=== PATIENT | female | born 1955 | race Caucasian/White ===

== ENCOUNTER 2017-07-23 11:15 | Emergency (ER) | payer OTHER ==
[~2017-07-23] VITALS: Ht 162.6 cm; Wt 95.3 kg
--- NOTE | 2017-07-23 12:12 | ED SKIN/ALLERGY COMPLAINT ---
History of Present Illness General Chief Complaint: General Adult Stated Complaint: PT IS HAVING A REACTION TO RX SHE TAKING Source: patient, old records Exam Limitations: no limitations Vital Signs & Intake/Output Vital Signs & Intake/Output Vital Signs Date Time Temp Pulse Resp B/P B/P Pulse O2 O2 Flow FiO2 Mean Ox Delivery Rate 07/23 1340 98.4 81 16 128/66 99 Room Air 07/23 1240 Room Air 07/23 1135 97.5 83 18 130/70 95 Room Air Room Air Allergies Coded Allergies: ciprofloxacin (From CIPRO) (Severe, THROAT CLOSING AND CHEST TIGHTNESS 07/23/17) Reconcile Medications Nitrofurantoin Monohyd/M-Cryst (Macrobid 100 MG Capsule) 100 MG CAPSULE 1 CAP PO BID uti with food Phenazopyridine HCl (Pyridium) 200 MG TABLET 1 TAB PO TID uti Triage Note: PT REPORTS BEING TREATED FOR UTI WITH CIPRO BUT WAS DISCONTINUED BECAUSE OF ALLERGIC REACTION. PT REPORTS STARTING SULFAMETHOXAZ THIS MORNING AND FEELING TIGHTNESS IN HER THROAT AND CHEST WITH A COUGH. PT TOOK 25MG OF BENDARYL AND REPORTS RELIEF IN SYMPTOMS. Triage Nurses Notes Reviewed? yes Onset: Abrupt Duration: day(s): (1), better, resolved prior to arrival Timing: recent history Severity: mild Severity Numbers: 4 Possible Factors: no cause identified No Modifying Factors: none Associated Symptoms: denies HPI: 62-year-old female presents the ER for evaluation. She states that approximately 2 weeks ago she was begun on Ceftin year for urinary tract infection by her urologist Dr. Simmons. She states she finished the complete course and was not feeling better. She states she followed up with an infectious disease doctor who first her on Cipro however the patient began to have episodes of coughing spells and tightness in her throat for which she stopped the medication. She did not need to take any Benadryl for the time it was not seen in the emergency room for those reactions. She started her Bactrim at 5 AM this morning and approximately hour later she began to have similar symptoms once again difficulty swallowing and a cough. She denies rash or skin. She denies history of allergic reactions or anaphylaxis in the past. She took one Benadryl tablet and the symptoms resolved. She still reports to the urinary complaints. No vaginal discharge however she performs self catheterizations and states she's noticed discharge in the catheter tube which is unlike her and that is how she no she has a an infection. No dysuria hematuria. No abdominal pain however she was complaining of bilateral lower back pain that resolved after self-catheterization. No chest pain shortness of breath difficulty swallowing at this time ([place]) Past History Travel History Traveled to [place] past 21 day No Medical History Any Pertinent Medical History? 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 No ([place]ner [place]) Review of Systems Review of Systems Constitutional: Reports: see HPI. Comments Review of systems: See HPI, All other systems negative. Constitutional, no chills no fever, no malaise HEENT: no sore throat no congestion, no ear pain Cardiovascular: No chest pain , no palpitation Skin: no rashes, no change in skin Respiratory: No dyspnea cough no sputum GI: No nausea no vomiting, no diarrhea, no bloating/constipation : No dysuria No hematuria, no frequency Muscle skeletal: No joint pain, no back pain, no neck pain Neurologic: , no headache Heme/endocrine: No bruising ([place]ner Camp) Physical Exam Physical Exam General Appearance: well developed/nourished, no apparent distress, alert, awake Comments: Well-developed well-nourished patient in no apparent distress. HEENT: Atraumatic, extraocular motion intact Neck: Supple, FROM pharynx is within normal limits no trismus no uvula displacement no stridor no lip or tongue swelling Back: FROM no CVA tenderness Cardiovascular: Regular rate and rhythms no murmurs rubs or gallops, Respiratory: Chest nontender.There were no bony deformities, no asymmetry. No respiratory distress. Patient speaking in full complete sentences. Breath sounds clear to auscultation bilaterally: NO W/R/R Abdomen: Soft nontender no rebound no guarding normal bowel sounds Extremities: full range of motion Neuro: awake, alert, and oriented to person, place and time. There were no obvious focal neurologic abnormalities. Skin: Warm & dry;No appreciable rash on exposed skin no uritcaria Psych: Mood affect normal, normal memory normal judgment. ([place]ner Camp) Progress Differential Diagnosis: allergic reaction, anaphylaxis, angioedema, uti, pyelo Plan of Care: Orders Procedure Date/time Status CULTURE,URINE 07/23 122 Active URINALYSIS 07/23 1219 Complete COMPREHENSIVE METABOLIC PANEL 07/23 1219 Complete CBC WITHOUT DIFFERENTIAL 07/23 1219 Complete Laboratory Tests 07/23/17 1232: Urine Color STRAW, Urine Clarity CLEAR, Urine pH 6.5, Ur Specific [place] 1.010, Urine Protein NEG, Urine Ketones NEG, Urine Nitrite NEG, Urine Bilirubin NEG, Urine Urobilinogen 0.2, Ur Leukocyte Esterase NEG, Ur Microscopic EXAM NOT REQUIRED, Urine Hemoglobin NEG, Urine Glucose NEG 07/23/17 1230: Anion Gap 13, Estimated GFR > 60, BUN/Creatinine Ratio 23.8, Glucose 98, Calcium 10.3 H, Total Bilirubin 0.3, AST 23, ALT 21, Alkaline Phosphatase 57, Total Protein 7.2, Albumin 4.6, Globulin 2.6, Albumin/Globulin Ratio 1.8, CBC w Diff NO MAN DIFF REQ, RBC 4.34, MCV 89.8, MCH 29.3, MCHC 32.6 L, RDW 14.8 H, MPV 8.7, Gran % 61.9, Lymphocytes % 29.8, Monocytes % 6.4, Eosinophils % 1.4, Basophils % 0.5, Absolute Granulocytes 5.0, Absolute Lymphocytes 2.4, Absolute Monocytes 0.5, Absolute Eosinophils 0.1, Absolute Basophils 0 Microbiology 07/23 123 URINE ROUT: Urine Culture - RECD Patient exhibiting no signs of allergic reaction at this time she states the symptoms resolved with Benadryl. There was no rash. Labs were ordered we will continue to monitor Case discussed with Dr. Hammond who agrees with plan we will send her home with Macrobid and by radium she will follow up with her urologist Dr. Simmons on Tuesday. Return precautions were discussed directly she feels comfortable plan ([place]) Departure Departure Time of Disposition: 1329 Disposition: HOME OR SELF CARE Condition: Stable Clinical Impression Primary Impression: UTI (urinary tract infection) Referrals: Jerardo Mireles MD (PCP/Family) Additional Instructions: Follow up with your urologist dr simmons on tuesday. macrobid and pyridium as directed. return if you redevelop your symptoms from earlier today or any other concerns Departure Forms: Customer Survey General Discharge Information Prescriptions: Current Visit Scripts Nitrofurantoin Monohyd/M-Cryst (Macrobid 100 MG Capsule) 1 CAP PO BID #10 CAP with food Phenazopyridine HCl (Pyridium) 1 TAB PO TID #6 TAB ([place]) PA/[employer] Co-Sign Statement Statement: ED Attending supervision documentation- [] I saw and evaluated the patient. I have also reviewed all the pertinent lab results and diagnostic results. I agree with the findings and the plan of care as documented in the PA's/[employer]'s documentation. [X] I have reviewed the ED Record and agree with the PA's/[employer]'s documentation. [] Additions or exceptions (if any) to the PAs/BL[employer]ST[employer]LLER's note and plan are summarized below: [] (Saul Hammond DO)
[2017-07-23 12:57] LABS: ABSOLUTE BASOPHIL COUNT 0 /CUMM (0.0-0.2); ABSOLUTE EOSINOPHIL COUNT 0.1 /CUMM (0.0-0.7); ABSOLUTE LYMPH COUNT 2.4 /CUMM (1.2-3.4); ABSOLUTE MONOCYTE COUNT 0.5 /CUMM (0.10-0.60); BASOPHIL % 0.5 % (0.0-2.0); EOSINOPHIL % 1.4 % (0-5); GRANULOCYTE % 61.9 % (42.2-75.2); HEMATOCRIT 38.9 % (37-47); MEAN CORPUSCULAR HGB 29.3 PG (27.0-31.0); MEAN CORPUSCULAR HGB CONC 32.6 G/DL (33.0-37.0); MEAN CORPUSCULAR VOLUME 89.8 FL (81.0-99.0); MEAN PLATELET VOLUME 8.7 FL (7.4-10.4); PLATELET COUNT 355 /CUMM (130-400); RBC DISTRIBUTION WIDTH 14.8 % (11.5-14.5); RED BLOOD CELL CT 4.34 /CUMM (4.20-5.40); WHITE BLOOD CELL COUNT 8.1 /CUMM (4.8-10.8)
[2017-07-23] MEDS ORDERED: MACROBID 100 M100 MG PO (13:35)
[2017-07-23] MEDS ORDERED: PYRIDIUM200 M1 PO (13:35)
[2017-07-23 13:40] VITALS: BP 128/66
== END 2017-07-23 13:30 ==
LOC: ERH 11:15
PROVIDERS: Physician Assistant Medical
DX: N39.0 Urinary tract infection, site not specified (principal)
CPT/HCPCS: 81003; 87086